=== PATIENT | male | born 1985 | race Hispanic/Latino ===

== ENCOUNTER 2017-12-08 11:27 | Emergency (ER) | payer MEDICAID, OTHER ==
[2017-12-08 11:37] VITALS: TEMP 98.8; O2SAT 97
--- NOTE | 2017-12-08 13:41 | ED PDOC ---
Arrival/HPI - General Chief Complaint: Lower Extremity Problem/Injury Time Seen by Provider: 12/08/17 11:49 Historian: Patient - History of Present Illness Narrative History of Present Illness (Text): 12/08/17 13:54 32 y/o male with PMH of right foot lis franc fracture (s/p fusion 2016) presents to the ED c/o R dorsal foot pain x 1 day. He went running yesterday and "pushed it further than usual", inciting his right foot pain in the area of the fusion site. Pt states he has broken the hardware in the foot before, and this pain feels similar. Pain is worse with walking and bearing weight. He has not taken anything for pain. He has an appointment with his surgeon on Saturday and is asking for CT to bring to appointment. Denies new numbness, paresthesias, fever, chills, ankle pain, knee pain. Past Medical History - Tetanus Immunization Tetanus Immunization: Unknown - Past Medical History Past Medical History: No Previous - Cardiac Hx Cardiac Disorders: No - Pulmonary Hx Respiratory Disorders: Yes Hx Asthma: Yes - Neurological Hx Neurological Disorder: No - HEENT Hx HEENT Disorder: No - Renal Hx Renal Disorder: No - Endocrine/Metabolic Hx Endocrine Disorders: No - Hematological/Oncological Hx Blood Disorders: No Hx Blood Transfusions: No - Integumentary Hx Dermatological Disorder: No - Musculoskeletal/Rheumatological Hx Musculoskeletal Disorders: Yes Hx Fractures: Yes Other/Comment: right foot injury - Gastrointestinal Hx Gastrointestinal Disorders: No - Genitourinary/Gynecological Hx Genitourinary Disorders: No - Psychiatric Hx Psychophysiologic Disorder: Yes Hx Anxiety: Yes Hx Substance Use: No - Surgical History Hx Arthroscopy: Yes (W/ACL) Hx Orthopedic Surgery: Yes Hx Tonsillectomy: Yes Other/Comment: ARTHRODESIS RIGHT FOOT. RIGHT KNEE ACL. RIGHT ROTATOR CUFF - Anesthesia Hx Anesthesia: Yes Hx Anesthesia Reactions: Yes (NAUSEA) Hx Malignant Hyperthermia: No - Suicidal Assessment Feels Threatened In Home Enviroment: No Family/Social History - Physician Review Nursing Documentation Reviewed: Yes Family/Social History: No Known Family HX Smoking Status: Never Smoked Hx Alcohol Use: Yes Frequency of alcohol use: Socially Hx Substance Use: No Hx Substance Use Treatment: No Allergies/Home Meds Allergies/Adverse Reactions: Allergies No Known Allergies Allergy (Verified 12/08/17 11:32) Home Medications: Home Meds Medication Instructions Recorded Confirmed No Known Home Med 12/08/17 12/08/17 Review of Systems - Review of Systems Constitutional: Normal Respiratory: Normal Cardiovascular: Normal Gastrointestinal: Normal Musculoskeletal: Arthralgias (right foot). absent: Back Pain, Neck Pain, Joint Swelling Skin: Normal. absent: Rash, Laceration, Cellulitis Neurological: Normal Physical Exam Vital Signs Reviewed: Yes Vital Signs Temp Pulse Resp BP Pulse Ox 12/08/17 11:33 98.8 F 62 16 135/84 97 Temperature: Afebrile Blood Pressure: Normal Pulse: Regular Respiratory Rate: Normal Appearance: Positive for: Well-Appearing, Non-Toxic, Comfortable Pain Distress: None Mental Status: Positive for: Alert and Oriented X 3 - Systems Exam Head: Present: Atraumatic, Normocephalic Pupils: Present: PERRL Extroacular Muscles: Present: EOMI Respiratory/Chest: Present: Clear to Auscultation, Good Air Exchange. No: Respiratory Distress, Accessory Muscle Use Cardiovascular: Present: Regular Rate and Rhythm, Normal S1, S2. No: Murmurs Upper Extremity: Present: Normal Inspection, Normal ROM, NORMAL PULSES Lower Extremity: Present: NORMAL PULSES, Normal ROM, Neurovascularly Intact, Capillary Refill < 2 s. No: Normal Inspection (2 parallel vertical scars approx 4 cm on dorsal surface right foot), Tenderness, Swelling, Erythema, Deformity, Temperature Abnormalties Neurological: Present: GCS=15, CN II-XII Intact, Speech Normal Skin: Present: Warm, Dry, Normal Color. No: Rashes Psychiatric: Present: Alert, Oriented x 3, Normal Insight, Normal Concentration Medical Decision Making ED Course and Treatment: 12/08/17 13:26 32 y/o male with PMH of right foot lis franc fracture (s/p fusion 2016) presents to the ED c/o R dorsal foot pain x 1 day. He went running yesterday and "pushed it further than usual", inciting his right foot pain in the area of the fusion site. Pt states he has broken the hardware in the foot before, and this pain feels similar. Pain is worse with walking and bearing weight. He has not taken anything for pain. He has an appointment with his surgeon on Saturday and is asking for CT to bring to appointment. Denies new numbness, paresthesias, fever, chills, ankle pain, knee pain. Physical Exam: Able to bear weight. 2 parallel vertical scars over dorsal right foot. Right and Left Lower extremity exams normal: Full ROM, nontender, normal sensation and motor function, distal pulses 2/2. will get XR right foot will get CT right foot Right Lower Extremity CT FINDINGS: No evidence of orthopedic hardware failure. Orthopedic hardware 2 side plates and 4 screws anchored to the base of the 3rd metatarsal and adjacent Cuneiform. Postoperative degenerative changes identified at the surgical site. No acute fracture identified. Unremarkable ankle mortise as visualized. No significant talar or calcaneal abnormalities. Unremarkable scaphoid. IMPRESSION: No evidence of hardware failure. No acute findings. XR Right Foot No acute fracture or hardware failure as read by me pending official read 12/08/17 13:58 Impression: Foot pain Plan: Take ibuprofen every 6 hours as needed for pain Ice, rest, and elevate the area Followup with surgeon as scheduled Plan discussed with pt who agrees and understands. Pt comfortable with discharge home. - RAD Interpretation Radiology Orders: 12/08/17 11:50 FOOT RIGHT 3 VIEWS ROUTINE [RAD] Stat 12/08/17 12:30 EXT LOWER W/O CONTRAST RIGHT [CT] Stat Machine Repairer: Radiologist Disposition/Present on Arrival - Present on Arrival Any Indicators Present on Arrival: No History of DVT/PE: No History of Uncontrolled Diabetes: No Urinary Catheter: No History of Decub. Ulcer: No History Surgical Site Infection Following: None - Disposition Have Diagnosis and Disposition been Completed?: Yes Diagnosis: Foot pain Disposition: HOME/ ROUTINE Disposition Time: 13:25 Patient Plan: Discharge Condition: GOOD Additional Instructions: Take ibuprofen every 6 hours as needed for pain Ice, rest, and elevate the area Followup with surgeon as scheduled on Saturday Return to ED if symptoms persist or worsen Forms: [employer] ([place]ovenian), WORK NOTE
--- NOTE | 2017-12-08 13:47 | CT ---
Date of service: 12/08/2017 PROCEDURE: CT right foot HISTORY: Right Foot Pain - Hardware Assessment COMPARISON: 12/21/2015 MRI right foot. 12/24/2015 right foot radiographs. 05/25/2016 MRI right foot TECHNIQUE: 1.25 mm axial acquisition and display. Coronal and sagittal reconstructions. Dose report (mGy-cm): 354.69 FINDINGS: No evidence of orthopedic hardware failure. Orthopedic hardware 2 side plates and 4 screws anchored to the base of the 3rd metatarsal and adjacent Cuneiform. Postoperative degenerative changes identified at the surgical site. No acute fracture identified. Unremarkable ankle mortise as visualized. No significant talar or calcaneal abnormalities. Unremarkable scaphoid. IMPRESSION: No evidence of hardware failure. No acute findings.
[2017-12-08 13:49] VITALS: BP 110/74; PULSE 55; RESP 18
--- NOTE | 2017-12-08 14:39 | RAD ---
Date of service: 12/08/2017 PROCEDURE: Right Foot Radiographs. HISTORY: right footpain r/o hardware break(s/p fusion 2017) COMPARISON: 01/24/2016 FINDINGS: BONES: No evidence of orthopedic hardware failure. No acute osseous findings. JOINTS: Normal. SOFT TISSUES: Normal. OTHER FINDINGS: None. IMPRESSION: No significant or acute findings to account for/ related to the clinical presentation.
== END 2017-12-08 14:14 | disposition home or self-care (01) ==
LOC: ED 11:27
DX: M79.671 Pain in right foot (principal)

== ENCOUNTER 2018-03-27 20:55 | Emergency (ER) | payer OTHER ==
[2018-03-27 22:56] VITALS: BMI 31.5
--- NOTE | 2018-03-28 00:05 | ED PDOC ---
Arrival/HPI - General Chief Complaint: Lower Extremity Problem/Injury Time Seen by Provider: 03/27/18 23:01 Historian: Patient - History of Present Illness Narrative History of Present Illness (Text): 03/28/18 00:00 Minor Dow is a 32 year old male, whose past medical history includes multiple surgeries to right foot secondary to fracture and then malunion, 1st surgery: , 2nd surgery: 04/24/[address] Valdivia (sound cutter), who presents for right foot pain. Patient thinks he may have broken his foot again due to the pain. Patient notes he did start exercising recently, but tries to be careful with that foot. Otherwise, patient denies any numbness, weakness, joint pain, other injury, or any other complaints. Symptom Onset: Gradual Symptom Course: Unchanged Activities at Onset: Light Context: Home Past Medical History - Provider Review Nursing Documentation Reviewed: Yes - Tetanus Immunization Tetanus Immunization: Unknown - Past Medical History Past Medical History: No Previous - Cardiac Hx Cardiac Disorders: No - Pulmonary Hx Respiratory Disorders: Yes Hx Asthma: Yes - Neurological Hx Neurological Disorder: No - HEENT Hx HEENT Disorder: No - Renal Hx Renal Disorder: No - Endocrine/Metabolic Hx Endocrine Disorders: No - Hematological/Oncological Hx Blood Disorders: No Hx Blood Transfusions: No - Integumentary Hx Dermatological Disorder: No - Musculoskeletal/Rheumatological Hx Musculoskeletal Disorders: Yes Hx Fractures: Yes Other/Comment: right foot injury - Gastrointestinal Hx Gastrointestinal Disorders: No - Genitourinary/Gynecological Hx Genitourinary Disorders: No - Psychiatric Hx Psychophysiologic Disorder: Yes Hx Anxiety: Yes Hx Substance Use: No - Surgical History Hx Arthroscopy: Yes (W/ACL) Hx Orthopedic Surgery: Yes (R foot x 2, R knee) Hx Tonsillectomy: Yes Other/Comment: ARTHRODESIS RIGHT FOOT. RIGHT KNEE ACL. RIGHT ROTATOR CUFF - Anesthesia Hx Anesthesia: Yes Hx Anesthesia Reactions: Yes (NAUSEA/vomiting) Hx Malignant Hyperthermia: No - Suicidal Assessment Feels Threatened In Home Enviroment: No Family/Social History - Physician Review Nursing Documentation Reviewed: Yes Family/Social History: Unknown Family HX Smoking Status: Never Smoked Hx Alcohol Use: Yes Frequency of alcohol use: Socially Hx Substance Use: No Hx Substance Use Treatment: No Allergies/Home Meds Allergies/Adverse Reactions: Allergies No Known Allergies Allergy (Verified 03/27/18 22:56) Review of Systems - Physician Review All systems were reviewed & negative as marked: Yes - Review of Systems Constitutional: Normal. absent: Fevers Eyes: Normal ENT: Normal Respiratory: Normal. absent: SOB, Cough Cardiovascular: Normal. absent: Chest Pain Gastrointestinal: Normal. absent: Abdominal Pain, Diarrhea, Nausea, Vomiting Genitourinary Male: Normal. absent: Dysuria, Frequency, Hematuria, Urinary Output Changes Musculoskeletal: Other (+right foot pain). absent: Back Pain, Neck Pain Skin: Normal. absent: Rash Neurological: Normal. absent: Headache, Dizziness Endocrine: Normal Hemo/Lymphatic: Normal Psychiatric: Normal Physical Exam Vital Signs Reviewed: Yes Temperature: Afebrile Blood Pressure: Normal Pulse: Regular Respiratory Rate: Normal Appearance: Positive for: Well-Appearing, Non-Toxic, Comfortable Pain Distress: None Mental Status: Positive for: Alert and Oriented X 3 - Systems Exam Head: Present: Atraumatic, Normocephalic Pupils: Present: PERRL Extroacular Muscles: Present: EOMI Conjunctiva: Present: Normal Mouth: Present: Moist Mucous Membranes Neck: Present: Normal Range of Motion Lower Extremity: Present: NORMAL PULSES, Normal ROM, Neurovascularly Intact, Capillary Refill < 2 s, Other (2 healed scars on dorsal aspect of right foot). No: Edema, Tenderness, Swelling, Erythema, Deformity, Temperature Abnormalties Neurological: Present: GCS=15, CN II-XII Intact, Speech Normal Skin: Present: Warm, Dry, Normal Color. No: Rashes Psychiatric: Present: Alert, Oriented x 3, Normal Insight, Normal Concentration Medical Decision Making ED Course and Treatment: 03/28/18 00:00 Impression: 32 year old male complaining of right foot pain, history of multiple right foot surgeries. Plan: -- XR Right Foot -- Reassess and disposition Progress Notes: XR R foot: no acute fracture, no dislocation, +hardware of plate and screws noted at the 3rd MT, as read by PA XR results d/w the patient. Advised to follow up with his sound cutter in 1-2 days without fail. Advised to take medication as prescribed. Return to the emergency room at any time for any new or worsening symptoms. Patient states he fully agrees with and understands discharge instructions. States that he agrees with the plan and disposition. Verbalized and repeated discharge instructions and plan. I have given the patient opportunity to ask any additional questions. - RAD Interpretation Radiology Orders: 03/27/18 23:28 FOOT RIGHT 3 VIEWS ROUTINE [RAD] Stat - PA / PODIATRIST ASSISTANT / Resident Statement MD/DO has reviewed & agrees with the documentation as recorded. - Scribe Statement The provider has reviewed the documentation as recorded by the Barbara Patel Provider Scribe Attestation: All medical record entries made by the Scribe were at my direction and personally dictated by me. I have reviewed the chart and agree that the record accurately reflects my personal performance of the history, physical exam, medical decision making, and the department course for this patient. I have also personally directed, reviewed, and agree with the discharge instructions and disposition. Disposition/Present on Arrival - Present on Arrival Any Indicators Present on Arrival: No History of DVT/PE: No History of Uncontrolled Diabetes: No Urinary Catheter: No History of Decub. Ulcer: No History Surgical Site Infection Following: None - Disposition Have Diagnosis and Disposition been Completed?: Yes Diagnosis: Foot pain Disposition: HOME/ ROUTINE Disposition Time: :30 Patient Plan: Discharge Patient Problems: Current Active Problems Problem Status Onset Foot pain Acute Condition: STABLE Discharge Instructions (ExitCare): Muscle and Bone Pain (DC) Additional Instructions: Thank you for letting us take care of you today. You were treated for foot pain. The emergency medical care you received today was directed at your acute symptoms. If you were prescribed any medication, please fill it and take as directed. It may take several days for your symptoms to resolve. Return to the Emergency Department if your symptoms worsen, do not improve, or if you have any other problems. Please contact your foot doctor in 2 days for re-evaluation and follow up. Bring any paperwork you were given at discharge with you along with any medications you are taking to your follow up visit. Our treatment cannot replace ongoing medical care by a primary care provider (PCP) outside of the emergency department. Thank you for allowing the [facility] team to be part of your care today. If you had an X-Ray: A Radiologist will review the ED reading if any change in treatment is needed we will contact you. Prescriptions: Naproxen 500 mg PO BID #30 tab Referrals: FAMILY PROVIDER,NO [Primary Care Provider] - Follow up with primary Forms: [employer] ([place]), WORK NOTE
[2018-03-28 04:21] VITALS: TEMP 98.1
[2018-03-28 04:22] VITALS: BP 127/80; PULSE 81; RESP 16; O2SAT 100
--- NOTE | 2018-03-28 11:08 | RAD ---
Date of service: 03/28/2018 PROCEDURE: Right Foot Radiographs. HISTORY: pain COMPARISON: None. FINDINGS: BONES: Normal. No fracture. JOINTS: Normal. SOFT TISSUES: Normal. OTHER FINDINGS: Surgical hardware is seen at the base of the 3rd metatarsal and adjacent cuneiform IMPRESSION: No acute findings
== END 2018-03-28 01:30 | disposition home or self-care (01) ==
LOC: ED 20:55
DX: M79.671 Pain in right foot (principal); Z98.890 Other specified postprocedural states